=== PATIENT | female | born 1960 | race Caucasian/White ===

== ENCOUNTER 2018-12-18 12:28 | Emergency (ER) | payer OTHER | END 2018-12-18 16:13 | disposition other institution (70) | LOC: EDBD 12:28 → ED 12:28 | DX: Z02.89 Encounter for other administrative examinations (principal) ==

== ENCOUNTER 2018-12-18 12:28 | Emergency (ER) | payer SELFPAY ==
[~2018-12-18] VITALS: Ht 160 cm; Wt 40.8 kg
[2018-12-18 12:49] VITALS: Ht 160 cm; Wt 40.8 kg
[2018-12-18 14:30] LABS: CALCIUM 8.9 mg/dL (8.5-10.1); CHLORIDE SERUM 106 mmol/L (98-107); CREATININE SERUM 0.7 mg/dL (0.6-1.0); GFR1 > 60 mL/min; GLUCOSE SERUM 90 mg/dL (74-106); POTASSIUM SERUM 3.3 mmol/L (3.5-5.1); SODIUM SERUM 144 mmol/L (136-145)
[2018-12-18 14:31] LABS: BASOPHIL % 0.8 % (0-2); PLATELET COUNT 223 x10^3mcL (130-400); RED CELL DISTRIBUTION WIDTH 13.7 % (11.5-14.5)
[2018-12-18 14:35] LABS: ALBUMIN 3.5 g/dL (3.4-5.0); ALKALINE PHOSPHATASE 75 U/L (46-116); ALT/SGPT 22 U/L (14-59); AST/SGOT 16 U/L (15-37); BILIRUBIN TOTAL 0.7 mg/dL (0.20-1.00); TOTAL PROTEIN, SERUM 6.6 g/dL (6.4-8.2)
[2018-12-18 15:17] LABS: AMPHETAMINE QUAL UR POSITIVE (See below)
[2018-12-18 15:36] LABS: microscopic required? YES; urine erythrocyte TRACE (NEGATIVE)
[2018-12-18 16:13] VITALS: BP 135/80
== END 2018-12-18 16:13 | disposition other institution (70) ==
LOC: EDBD 12:28 → ED 12:28
PROVIDERS: Emergency Medicine
DX: F29 Unspecified psychosis not due to a substance or known physiological condition (principal); F15.90 Other stimulant use, unspecified, uncomplicated; F12.90 Cannabis use, unspecified, uncomplicated; Z59.0 Homelessness
CPT/HCPCS: 36415; G0480; J2060; J3486